=== PATIENT | male | born 1955 | race Caucasian/White ===

== ENCOUNTER 2017-05-31 00:45 | Emergency (ER) | payer MEDICARE, OTHER ==
[~2017-05-31] VITALS: Ht 177.8 cm; Wt 145.9 kg
[2017-05-31 00:54] VITALS: BP 180/103
== END 2017-05-31 01:42 | disposition home or self-care (01) ==
LOC: ER 00:47
DX: F30.9 Manic episode, unspecified (principal); G89.29 Other chronic pain; F12.10 Cannabis abuse, uncomplicated; E11.9 Type 2 diabetes mellitus without complications
CPT/HCPCS: 99281; 99284